=== PATIENT | male | born 1990 | race African-American/Black ===

== ENCOUNTER 2022-12-26 00:27 | Emergency (ER) | payer MEDICAID ==
[~2022-12-26] VITALS: Ht 182.9 cm; Wt 87.0 kg
[2022-12-26 00:34] VITALS: BP 150/96
== END 2022-12-26 00:55 | disposition home or self-care (01) ==
LOC: ER 00:27
DX: Z13.9 Encounter for screening, unspecified (principal); I10 Essential (primary) hypertension
CPT/HCPCS: 99283

== ENCOUNTER 2023-10-30 16:13 | Emergency (ER) | payer MEDICAID, OTHER ==
[~2023-10-30] VITALS: Ht 177.8 cm; Wt 87.0 kg
[~2023-10-30 16:13] MED LIST: LISI20TA31 PO; RISP2TAB85 PO
[2023-10-30 16:23] VITALS: BP 150/100; PULSE 133; RESP 18; TEMP 98.3; O2SAT 99
== END 2023-10-30 20:18 | disposition left against medical advice (07) ==
LOC: ER 16:13
DX: F10.10 Alcohol abuse, uncomplicated (principal); I10 Essential (primary) hypertension; Y90.9 Presence of alcohol in blood, level not specified
CPT/HCPCS: 99283

== ENCOUNTER 2023-12-24 08:01 | Emergency (ER) | payer OTHER ==
[~2023-12-24] VITALS: Ht 177.8 cm; Wt 100.0 kg
[2023-12-24 08:05] VITALS: O2SAT 100
[2023-12-24] MEDS ORDERED: LEVETIRACETAM 500MG PREMIX 100 ML IV ONE (08:30)
[2023-12-24 09:44] LABS: BASOPHILS % 0.9 % (0.0-2.0); EOSINOPHILS % 0.4 % (0.0-5.0); HEMATOCRIT. 39.7 % (42.0-52.0); HEMOGLOBIN. 13.1 g/dL (14.0-18.0); LYMPHOCYTES % 17.5 % (20.0-50.0); MEAN CORPUSCULAR HEMOGLOBIN 31.7 pg (28.0-32.0); MEAN CORPUSCULAR HGB CONC 32.9 g/dL (31.0-37.0); MEAN CORPUSCULAR VOLUME 96.4 fL (80.0-94.0); MEAN PLATELET VOLUME 10.2 fl (7.4-10.4); MONOCYTES % 10.1 % (2.0-8.0); NEUTROPHILS % 71.1 % (40.0-76.0); PLATELET 117 x1000/uL (130-400); RED BLOOD CELL COUNT 4.12 mill/uL (4.7-6.1); RED CELL DISTRIBUTION WIDTH 13.2 % (11.6-14.6); WHITE BLOOD COUNT 4.4 x1000/uL (4.5-11.0)
[2023-12-24 11:54] LABS: CLARITY URINE CLOUDY (CLEAR); COLOR URINE ORANGE (YELLOW); GLUCOSE URINE NEGATIVE (NEGATIVE); KETONES URINE 3+ (NEGATIVE); LEUKOCYTE ESTERASE URINE TRACE (NEGATIVE); NITRITE URINE POSITIVE (NEGATIVE); OCCULT BLOOD URINE NEGATIVE (NEGATIVE); PROTEIN URINE 2+ (NEGATIVE); SPECIFIC GRAVITY URINE 1.031 (1.005-1.030)
[2023-12-24 12:26] LABS: ALANINE AMINOTRANSFERASE 121 IU/L (10-49); ALBUMIN 4.2 g/dL (3.2-4.8); ASPARTATE AMINOTRANSFERASE 325 IU/L (<34); BILIRUBIN TOTAL 2.7 mg/dL (0.1-1.0); CALCIUM 9.6 mg/dL (8.7-10.4); CARBON DIOXIDE 21 mEq/L (21-32); CHLORIDE 97 mEq/L (98-107); GLUCOSE 97 mg/dL (70-105); PROTEIN TOTAL 7.8 g/dL (6.0-8.3); SODIUM 139 mEq/L (136-145); UREA NITROGEN BLOOD 11 mg/dL (9-23)
[2023-12-24 12:26] LABS: BACTERIA URINE FEW; RBC URINE NONE SEEN /hpf (0-2); SQUAMOUS EPITHELIAL CELL URINE RARE /lpf (RARE/1+); YEAST URINE NONE SEEN
[2023-12-24 12:32] LABS: ETHANOL BLOOD < 10 mg/dL (<10)
[2023-12-24 12:57] LABS: *AMPHETAMINES SCREEN URINE NEGATIVE (NEGATIVE); *BARBITURATES SCREEN URINE NEGATIVE (NEGATIVE); *BENZODIAZEPINES SCREEN URINE NEGATIVE (NEGATIVE); *COCAINE SCREEN URINE NEGATIVE (NEGATIVE); CANNABINOID URINE SCREEN NEGATIVE (NEGATIVE); ECSTASY MDMA SCREEN URINE NEGATIVE (NEGATIVE); METHADONE URINE SCREEN Neg (NEGATIVE); OPIATES URINE SCREEN NEGATIVE (NEGATIVE); PHENCYCLIDINE URINE SCREEN NEGATIVE (NEGATIVE)
[2023-12-24] MEDS ORDERED: SODIUM CHLORIDE 0.9% 1,000 ML IV ONE (13:00)
[2023-12-24] MEDS ORDERED: CEFTRIAXONE 1GM PREMIX 50 ML IV ONE (13:00)
[2023-12-24] MEDS ORDERED: POTASSIUM CHLORIDE 20MEQ/PACKET PO ONE (13:00)
[2023-12-24] MEDS ORDERED: KEPP500 MT (14:01)
[2023-12-24] MEDS ORDERED: NITR-87 MT (14:01)
[2023-12-24 15:44] VITALS: BP 137/87; PULSE 70; RESP 12; TEMP 98.6
== END 2023-12-24 15:44 | disposition home or self-care (01) ==
LOC: ER 08:01
DX: R56.9 Unspecified convulsions (principal); N39.0 Urinary tract infection, site not specified; R79.89 Other specified abnormal findings of blood chemistry; E87.6 Hypokalemia; I10 Essential (primary) hypertension
CPT/HCPCS: 80053; 80305; 81003; 80320; 85025; 36415; 70450; 93005; 96367; 96365; 96366; 99285; J1953; J0696; J7030; G0480

== ENCOUNTER 2024-02-19 07:45 | Inpatient (IN) | payer OTHER ==
[~2024-02-19] VITALS: Ht 188 cm; Wt 81.2 kg
[~2024-02-19 07:45] MED LIST changes: +KEPP500 MT; +NITR-87 MT; +RISP-29 PO; -RISP2TAB85 PO
[2024-02-19 08:10] LABS: BASOPHILS % 1.1 % (0.0-2.0); HEMATOCRIT. 43.3 % (42.0-52.0); HEMOGLOBIN. 14.2 g/dL (14.0-18.0); LYMPHOCYTES % 14.2 % (20.0-50.0); MEAN CORPUSCULAR HEMOGLOBIN 31.7 pg (28.0-32.0); MEAN CORPUSCULAR HGB CONC 32.8 g/dL (31.0-37.0); MEAN CORPUSCULAR VOLUME 96.6 fL (80.0-94.0); MEAN PLATELET VOLUME 8.9 fl (7.4-10.4); MONOCYTES % 3.6 % (2.0-8.0); NEUTROPHILS % 81.1 % (40.0-76.0); PLATELET 254 x1000/uL (130-400); RED BLOOD CELL COUNT 4.49 mill/uL (4.7-6.1); RED CELL DISTRIBUTION WIDTH 14.7 % (11.6-14.6); WHITE BLOOD COUNT 8.8 x1000/uL (4.5-11.0)
[2024-02-19] MEDS: ONDANSETRON HCL 4MG/2ML INJ IV STA (08:36)
[2024-02-19 08:39] LABS: ALANINE AMINOTRANSFERASE 63 IU/L (10-49); ASPARTATE AMINOTRANSFERASE 137 IU/L (<34); BILIRUBIN TOTAL 1.2 mg/dL (0.1-1.0); CALCIUM 9.9 mg/dL (8.7-10.4); CHLORIDE 101 mEq/L (98-107); CREATININE 1.1 mg/dL (0.6-1.3); ETHANOL BLOOD 58 mg/dL (<10); GLUCOSE 72 mg/dL (70-105); POTASSIUM 4.2 mEq/L (3.5-5.1); PROTEIN TOTAL 9.3 g/dL (6.0-8.3); SODIUM 140 mEq/L (136-145); TROPONIN I HIGH SENSITIVITY 41 ng/L (3.0-53); UREA NITROGEN BLOOD 12 mg/dL (9-23)
[2024-02-19] MEDS: LORAZEPAM 2MG/ML INJ IV STA (08:47)
[2024-02-19] MEDS: SODIUM CHLORIDE 0.9% 1,000 ML IV ONE (08:48)
[2024-02-19 08:52] LABS: CARBON DIOXIDE < 10 mEq/L (21-32)
[2024-02-19] MEDS: LORAZEPAM 2MG/ML INJ IV ONE ×2 (10:14→13:05)
[2024-02-19] MEDS: FOLIC ACID 1 MG, THIAMINE HCL 100 MG, MVI, ADULT NO.1 10 ML in DEXTROSE 5% WATER 1,000 ML IV ONE (10:15)
[2024-02-19] MEDS: CHLORDIAZEPOXIDE 25MG CAPSULE PO ONE (10:34)
[2024-02-19 11:58] LABS: CLARITY URINE CLEAR (CLEAR); COLOR URINE YELLOW (YELLOW); GLUCOSE URINE NEGATIVE (NEGATIVE); KETONES URINE 3+ (NEGATIVE); LEUKOCYTE ESTERASE URINE NEGATIVE (NEGATIVE); NITRITE URINE NEGATIVE (NEGATIVE); OCCULT BLOOD URINE TRACE (NEGATIVE); PROTEIN URINE 1+ (NEGATIVE); SPECIFIC GRAVITY URINE 1.021 (1.005-1.030)
[2024-02-19 12:14] LABS: HYALINE CASTS URINE TNTC /lpf
[2024-02-19 12:15] LABS: MUCUS URINE 1+ /lpf (NONE/TRACE)
[2024-02-19 12:16] LABS: RBC URINE NONE SEEN /hpf (0-2); WBC URINE 0-2 /hpf (0-2)
[2024-02-19 12:17] LABS: BACTERIA URINE NONE SEEN; SQUAMOUS EPITHELIAL CELL URINE RARE /lpf (RARE/1+)
[2024-02-19 13:46] LABS: *AMPHETAMINES SCREEN URINE NEGATIVE (NEGATIVE); *BARBITURATES SCREEN URINE NEGATIVE (NEGATIVE); *BENZODIAZEPINES SCREEN URINE NEGATIVE (NEGATIVE); *COCAINE SCREEN URINE NEGATIVE (NEGATIVE); CANNABINOID URINE SCREEN NEGATIVE (NEGATIVE); ECSTASY MDMA SCREEN URINE NEGATIVE (NEGATIVE); METHADONE URINE SCREEN Neg (NEGATIVE); OPIATES URINE SCREEN NEGATIVE (NEGATIVE); PHENCYCLIDINE URINE SCREEN NEGATIVE (NEGATIVE)
[2024-02-19] MEDS ORDERED: LORAZEPAM 2MG/ML INJ IV PRN (15:00)
[2024-02-19] MEDS ORDERED: ONDANSETRON HCL 4MG/2ML INJ IV PRN (15:00)
[2024-02-19 15:46] VITALS: BP 141/93; PULSE 126; RESP 18; TEMP 98.8
[2024-02-19 20:00] VITALS: BP 159/102; PULSE 147; RESP 20; TEMP 97.8
[2024-02-19] MEDS: CHLORDIAZEPOXIDE 25MG CAPSULE PO SCH (22:14)
[2024-02-20] VITALS: BP 149/97; PULSE 137; RESP 18; TEMP 97.5
[2024-02-20 04:00] VITALS: BP 139/90; PULSE 124; RESP 18; TEMP 97.9
[2024-02-20 08:00] VITALS: BP 136/96; PULSE 132; RESP 18; TEMP 98.1
[2024-02-20 12:00] VITALS: BP 136/77; PULSE 99; RESP 18; TEMP 97.6
[2024-02-20] MEDS ORDERED: ACETAMINOPHEN 325MG TABLET PO PRN (12:00)
[2024-02-20] MEDS ORDERED: CLONIDINE 0.1MG TABLET PO PRN (12:00)
[2024-02-20] MEDS ORDERED: IPRATROPIUM/ALBUTEROL 0.5-3(2.5)MG/3ML NEB HHN PRN (12:00)
[2024-02-20] MEDS ORDERED: LEVETIRACETAM 500 MG in SODIUM CHLORIDE 0.9% 100 ML IV SCH (12:00)
[2024-02-20] MEDS ORDERED: DOCUSATE SODIUM 100MG CAPSULE PO PRN (12:00)
[2024-02-20] MEDS: ASPIRIN 81MG TABLET PO SCH (13:28)
[2024-02-20] MEDS: PANTOPRAZOLE SODIUM 40 MG/VIAL IV SCH (13:28)
[2024-02-20] MEDS: DILTIAZEM HCL 30MG TABLET PO SCH (13:29)
[2024-02-20] MEDS: FOLIC ACID 1 MG, THIAMINE HCL 100 MG, MVI, ADULT NO.1 10 ML in DEXTROSE 5% WATER 1,000 ML IV NR (13:35)
[2024-02-20] MEDS: LEVETIRACETAM 500MG PREMIX 100 ML IV SCH (13:35)
[2024-02-20 13:37] LABS: BG CARBOXYHEMOGLOBIN 0.9 % (0.5-1.5); BG DEOXYHEMOGLOBIN 2.3 % (0.0-5.0); BG FRACTION INSPIRED OXYGEN 21; BG HCO3 ACT 23.3 mmol/L (22.0-26.0); BG METHEMOGLOBIN 0.1 % (0.0-1.5); BG OXYGEN SATURATION 97.7 % (92.0-98.5); BG OXYHEMOGLOBIN 96.7 % (94.0-97.0); BG PCO2 33.7 mmHg (35.0-45.0); BG PH 7.457 (7.350-7.450); BG PO2 92.9 mmHg (75.0-100.0); BG SAMPLE SITE RIGHT BRACHIAL; BG TOTAL HEMOGLOBIN 13.3 g/dL (12.0-18.0); BG VENT MODE ROOM AIR
[2024-02-20 16:00] VITALS: BP 136/80; PULSE 156; RESP 18; TEMP 97.9
[2024-02-20 16:34] LABS: INR 1.1; PROTHROMBIN TIME 12.6 sec (9.6-11.0)
[2024-02-20 16:35] LABS: ALANINE AMINOTRANSFERASE 37 IU/L (10-49); ALBUMIN 4.3 g/dL (3.2-4.8); ASPARTATE AMINOTRANSFERASE 78 IU/L (<34); BILIRUBIN TOTAL 1.7 mg/dL (0.1-1.0); CALCIUM 9.6 mg/dL (8.7-10.4); CARBON DIOXIDE 26 mEq/L (21-32); CHLORIDE 102 mEq/L (98-107); CREATININE 0.9 mg/dL (0.6-1.3); GLUCOSE 110 mg/dL (70-105); POTASSIUM 3.6 mEq/L (3.5-5.1); PROTEIN TOTAL 7.5 g/dL (6.0-8.3); SODIUM 137 mEq/L (136-145); UREA NITROGEN BLOOD 16 mg/dL (9-23)
[2024-02-20 16:52] LABS: BASOPHILS % 0.5 % (0.0-2.0); EOSINOPHILS % 0.6 % (0.0-5.0); HEMATOCRIT. 36.1 % (42.0-52.0); HEMOGLOBIN. 12.4 g/dL (14.0-18.0); LYMPHOCYTES % 22.5 % (20.0-50.0); MEAN CORPUSCULAR HEMOGLOBIN 32.2 pg (28.0-32.0); MEAN CORPUSCULAR HGB CONC 34.5 g/dL (31.0-37.0); MEAN CORPUSCULAR VOLUME 93.4 fL (80.0-94.0); MEAN PLATELET VOLUME 9.6 fl (7.4-10.4); MONOCYTES % 8.9 % (2.0-8.0); NEUTROPHILS % 67.5 % (40.0-76.0); PLATELET 161 x1000/uL (130-400); RED BLOOD CELL COUNT 3.87 mill/uL (4.7-6.1); RED CELL DISTRIBUTION WIDTH 14.5 % (11.6-14.6); WHITE BLOOD COUNT 9.5 x1000/uL (4.5-11.0)
[2024-02-20] MEDS: ACETAMINOPHEN 325MG TABLET PO PRN (21:28)
[2024-02-20] MEDS: DILTIAZEM HCL 60MG TABLET PO SCH (22:00)
[2024-02-21 00:25] LABS: CREATINE KINASE MB FRACTION 0.6 ng/mL (0.5-3.6)
[2024-02-21 06:07] LABS: CALCIUM 8.6 mg/dL (8.7-10.4); CARBON DIOXIDE 27 mEq/L (21-32); CHLORIDE 99 mEq/L (98-107); CREATININE 0.8 mg/dL (0.6-1.3); GLUCOSE 92 mg/dL (70-105); SODIUM 135 mEq/L (136-145); UREA NITROGEN BLOOD 12 mg/dL (9-23)
[2024-02-21 06:21] LABS: BASOPHILS % 0.4 % (0.0-2.0); EOSINOPHILS % 1.7 % (0.0-5.0); HEMATOCRIT. 33.7 % (42.0-52.0); HEMOGLOBIN. 11.7 g/dL (14.0-18.0); LYMPHOCYTES % 31.9 % (20.0-50.0); MEAN CORPUSCULAR HEMOGLOBIN 32.2 pg (28.0-32.0); MEAN CORPUSCULAR HGB CONC 34.7 g/dL (31.0-37.0); MEAN PLATELET VOLUME 9.8 fl (7.4-10.4); MONOCYTES % 11.6 % (2.0-8.0); NEUTROPHILS % 54.4 % (40.0-76.0); PLATELET 134 x1000/uL (130-400); RED BLOOD CELL COUNT 3.63 mill/uL (4.7-6.1); RED CELL DISTRIBUTION WIDTH 14.4 % (11.6-14.6); WHITE BLOOD COUNT 7.4 x1000/uL (4.5-11.0)
[2024-02-21 08:00] VITALS: BP 114/84; PULSE 100; RESP 18; TEMP 97.7
[2024-02-21] MEDS: POTASSIUM CHLORIDE 20MEQ TABLET SR PO NR (11:58)
[2024-02-21 12:00] VITALS: BP 124/78; PULSE 79; RESP 18; TEMP 97.7
[2024-02-21 16:00] VITALS: BP 108/62; PULSE 94; RESP 18; TEMP 97.7
[2024-02-21 17:08] VITALS: BP 8/62; PULSE 94; RESP 18; TEMP 97.6
[2024-02-21 20:00] VITALS: BP 120/77; PULSE 100; RESP 16; TEMP 99.9
[2024-02-22] VITALS: BP 124/73; PULSE 102; RESP 16; TEMP 100
[2024-02-22 01:06] VITALS: BP 126/86; PULSE 115; TEMP 98.1; O2SAT 98
[2024-02-22 04:00] VITALS: BP 101/61; PULSE 102; RESP 18; TEMP 99
[2024-02-22] MEDS ORDERED: FAMOTIDINE 20MG TABLET PO SCH (09:00)
[2024-02-22 09:19] VITALS: BP 126/86; PULSE 115; RESP 19; TEMP 97.7
== END 2024-02-22 09:33 | disposition home or self-care (01) | DRG 201 ==
LOC: ER 08:16 → 8WST 09:53 → EDBEDREQTM 09:55 → EDBEDREQ 09:55
PROVIDERS: ADMIT Internal Medicine; ATTEND Internal Medicine
DX: I47.10 Supraventricular tachycardia, unspecified (principal); F10.231 Alcohol dependence with withdrawal delirium; K76.0 Fatty (change of) liver, not elsewhere classified; R16.0 Hepatomegaly, not elsewhere classified; R56.9 Unspecified convulsions; I10 Essential (primary) hypertension; Y90.2 Blood alcohol level of 40-59 mg/100 ml; Z86.718 Personal history of other venous thrombosis and embolism
CPT/HCPCS: 36415; 36600; 76700; 80048; 80053; 80305; 80320; 81003; 82375; 82550; 82553; 82805; 84484; 85025; 93005; 93306; 93970; 99291; 99292; C9113; J1953; J2060; J2405; J3411; J3490; J7030; J7070; G0480

== ENCOUNTER 2024-03-05 14:50 | Emergency (ER) | payer OTHER ==
[~2024-03-05] VITALS: Ht 182.9 cm; Wt 80.0 kg
[2024-03-05 14:54] VITALS: O2SAT 98
[2024-03-05 21:43] VITALS: BP 128/89; PULSE 100; RESP 16; TEMP 98.2
== END 2024-03-05 21:45 | disposition home or self-care (01) ==
LOC: ER 14:50
DX: F10.20 Alcohol dependence, uncomplicated (principal); I10 Essential (primary) hypertension; R56.9 Unspecified convulsions
CPT/HCPCS: 82962; 99284

== ENCOUNTER 2024-05-12 07:50 | Emergency (ER) | payer OTHER ==
[~2024-05-12] VITALS: Ht 177.8 cm; Wt 81.8 kg
[2024-05-12 07:53] VITALS: O2SAT 100
[2024-05-12] MEDS: ONDANSETRON HCL 4MG/2ML INJ IV STA (08:19)
[2024-05-12] MEDS: SODIUM CHLORIDE 0.9% 1,000 ML IV ONE (08:19)
[2024-05-12 08:26] LABS: BASOPHILS % 1.2 % (0.0-2.0); EOSINOPHILS % 0.3 % (0.0-5.0); HEMATOCRIT. 40.7 % (42.0-52.0); HEMOGLOBIN. 13.9 g/dL (14.0-18.0); LYMPHOCYTES % 27.1 % (20.0-50.0); MEAN CORPUSCULAR HEMOGLOBIN 32.4 pg (28.0-32.0); MEAN CORPUSCULAR HGB CONC 34.1 g/dL (31.0-37.0); MEAN CORPUSCULAR VOLUME 95.3 fL (80.0-94.0); MEAN PLATELET VOLUME 9.8 fl (7.4-10.4); MONOCYTES % 9.7 % (2.0-8.0); NEUTROPHILS % 61.7 % (40.0-76.0); PLATELET 136 x1000/uL (130-400); RED BLOOD CELL COUNT 4.27 mill/uL (4.7-6.1); WHITE BLOOD COUNT 5.1 x1000/uL (4.5-11.0)
[2024-05-12 08:34] LABS: CARBON DIOXIDE 23 mEq/L (21-32); CHLORIDE 99 mEq/L (98-107); POTASSIUM 3.8 mEq/L (3.5-5.1); SODIUM 137 mEq/L (136-145)
[2024-05-12 08:35] LABS: CALCIUM 9.6 mg/dL (8.7-10.4)
[2024-05-12 08:36] LABS: INR 1.1; PROTHROMBIN TIME 12.5 sec (9.6-11.0)
[2024-05-12 08:40] LABS: GLUCOSE 102 mg/dL (70-105); UREA NITROGEN BLOOD 8 mg/dL (9-23)
[2024-05-12 08:41] LABS: ALANINE AMINOTRANSFERASE 59 IU/L (10-49)
[2024-05-12 08:42] LABS: ALBUMIN 4.1 g/dL (3.2-4.8); ASPARTATE AMINOTRANSFERASE 154 IU/L (<34); BILIRUBIN TOTAL 2.6 mg/dL (0.1-1.0); PROTEIN TOTAL 7.5 g/dL (6.0-8.3)
[2024-05-12 08:58] LABS: ETHANOL BLOOD < 10 mg/dL (<10)
[2024-05-12] MEDS ORDERED: LORAZEPAM 1MG TABLET PO PRN ×2 (09:00)
[2024-05-12] MEDS ORDERED: PHENOBARBITAL 60MG TABLET PO PRN (09:00)
[2024-05-12] MEDS ORDERED: CHLORDIAZEPOXIDE 25MG CAPSULE PO PRN ×2 (09:00)
[2024-05-12] MEDS ORDERED: PHENOBARBITAL 30 MG TABLET PO PRN ×3 (09:00)
[2024-05-12] MEDS: THIAMINE HCL 100 MG/1 ML 2ML VIAL IM SCH (09:22)
[2024-05-12] MEDS: MULTIVITAMINS,THER W-MINERALS TABLET PO SCH (09:23)
[2024-05-12] MEDS: FOLIC ACID 1MG TABLET PO SCH (09:23)
[2024-05-12] MEDS: LORAZEPAM 1MG TABLET PO PRN (09:27)
[2024-05-12] MEDS: CHLORDIAZEPOXIDE 25MG CAPSULE PO PRN (09:28)
[2024-05-12] MEDS: MAGNESIUM 2 G PREMIX 50 ML IV NR (10:10)
[2024-05-12] MEDS ORDERED: ONDA4TAB11 PO (12:33)
[2024-05-12 13:21] VITALS: BP 128/84; PULSE 70; RESP 18; TEMP 98.2
[2024-05-14] MEDS ORDERED: THIAMINE HCL 100MG TABLET PO SCH (09:00)
== END 2024-05-12 14:29 | disposition home or self-care (01) ==
LOC: ER 07:50
DX: R11.2 Nausea with vomiting, unspecified (principal); I10 Essential (primary) hypertension; F10.20 Alcohol dependence, uncomplicated
CPT/HCPCS: 80076; 80048; 80320; 83690; 83735; 85025; 85610; 36415; 93005; 96365; 96372; 96375; 99284; J3475; J2405; J3411; J7030; G0480